=== PATIENT | male | born 1970 | race Two or more races ===

== ENCOUNTER 2022-12-27 09:39 | Inpatient (IN) | payer OTHER ==
[2022-12-27 10:20] VITALS: BMI 27.1
[2022-12-27] MEDS ORDERED: ONDANSETRON *ODT* 4 MG TABLET SL PRN (11:40)
[2022-12-27] MEDS ORDERED: POLYETHYLENE GLYCOL (HEALTHYLAX) 3350 17 GM PACKET PO PRN (11:40)
[2022-12-27] MEDS ORDERED: ACETAMINOPHEN 325 MG TABLET (FP) PO PRN (11:40)
[2022-12-27] MEDS ORDERED: BENZONATATE 200 MG CAPSULE PO PRN (11:40)
[2022-12-27] MEDS ORDERED: guaiFENesin 600 MG TABLET.ER (FP) PO PRN (11:40)
[2022-12-27] MEDS ORDERED: BENZOCAINE/MENTHOL (CHLORASEPTIC ) LOZENGE MM PRN (11:40)
[2022-12-27] MEDS ORDERED: MAGNESIUM HYDROX 2400MG/30ML ORAL SUSPENSION 30 ML CUP PO PRN (11:40)
[2022-12-27] MEDS ORDERED: NICOTINE POLACRILEX 2 MG GUM BUC PRN (11:40)
[2022-12-27] MEDS ORDERED: DICYCLOMINE HCL 10 MG CAPSULE PO PRN (11:40)
[2022-12-27] MEDS ORDERED: LOPERAMIDE HCL 2 MG CAPSULE PO PRN (11:40)
[2022-12-27] MEDS ORDERED: NALOXONE HCL (KLOXXADO) 8 MG SPRAY NS PRN (11:40)
[2022-12-27] MEDS ORDERED: IBUPROFEN 400 MG TABLET (FP) PO PRN (11:40)
[2022-12-27] MEDS ORDERED: P-EPHED 60MG/TRIPROLIDI 2.5MG TABLET PO PRN (11:40)
[2022-12-27] MEDS ORDERED: MAG HYDROX/AL HYDROX/SIMETH 30 ML UNIT-DOSE CUP PO PRN (11:40)
[2022-12-27] MEDS ORDERED: BISMUTH SUBSALICYLATE 262 MG/15 ML BTL PO PRN (11:40)
[2022-12-27] MEDS ORDERED: NALOXONE HCL 0.4 MG/ML VIAL IM PRN (11:40)
[2022-12-27] MEDS ORDERED: methaDONE HCL 10 MG TABLET (FOR DETOX USE ONLY) PO ONE (11:44)
[2022-12-27] MEDS ORDERED: cloNIDine HCL 0.1 MG TABLET PO PRN (11:44)
[2022-12-27] MEDS ORDERED: methaDONE HCL 10 MG TABLET (FOR DETOX USE ONLY) ONE (12:39)
[2022-12-27] MEDS: AMOXICILLIN 500 MG CAPSULE (FP) PO SCH ×2 (14:08→22:11)
[2022-12-27] MEDS: THIAMINE HCL 100 MG TABLET (FP) PO SCH (22:11)
[2022-12-27] MEDS: MELATONIN 5 MG TABLETS PO SCH (22:11)
[2022-12-28] MEDS: AMOXICILLIN 500 MG CAPSULE (FP) PO SCH ×3 (06:17→22:22)
[2022-12-28] MEDS: PRENATAL VITAMINS W/ FOLIC ACID TABLET (FP) PO SCH (10:07)
[2022-12-28] MEDS: METHOCARBAMOL 500 MG TABLET PO PRN ×2 (10:09→22:23)
[2022-12-28] MEDS: hydrOXYzine PAMOATE 25 MG CAPSULE (FP) PO PRN (22:23)
[2022-12-28] MEDS: THIAMINE HCL 100 MG TABLET (FP) PO SCH (22:23)
[2022-12-28] MEDS: MELATONIN 5 MG TABLETS PO SCH (22:23)
[2022-12-29] MEDS: AMOXICILLIN 500 MG CAPSULE (FP) PO SCH ×3 (06:00→22:11)
[2022-12-29] MEDS ORDERED: methaDONE HCL 10 MG TABLET (FOR DETOX USE ONLY) PO ONE (10:00)
[2022-12-29 10:11] LABS: POTASSIUM 4.3 mmol/L (3.5-5.1)
[2022-12-29] MEDS: PRENATAL VITAMINS W/ FOLIC ACID TABLET (FP) PO SCH (10:11)
[2022-12-29 10:18] LABS: HEMATOCRIT 45.8 % (35.4-49); HEMOGLOBIN 15.7 GM/dL (11.7-16.9); MCH 31.3 pg (25.7-33.7); MCHC 34.4 g/dl (32.0-35.9); MEAN PLT VOLUME 8.3 fl (7.5-11.1); PLATELET COUNT 271 10^3/uL (134-434); RBC 5.03 M/mm3 (4.00-5.60); RDW 13.4 % (11.9-15.9)
[2022-12-29 10:30] LABS: BLOOD UREA NITROGEN 24.4 mg/dL (7-18); CALCIUM 9.3 mg/dL (8.5-10.1)
[2022-12-29 10:31] LABS: ALBUMIN 3.7 g/dl (3.4-5.0)
[2022-12-29 10:35] LABS: BILIRUBIN,TOTAL 0.5 mg/dL (0.2-1)
[2022-12-29] MEDS: THIAMINE HCL 100 MG TABLET (FP) PO SCH (22:11)
[2022-12-29] MEDS: METHOCARBAMOL 500 MG TABLET PO PRN (22:11)
[2022-12-29] MEDS: MELATONIN 5 MG TABLETS PO SCH (22:11)
[2022-12-30] MEDS: AMOXICILLIN 500 MG CAPSULE (FP) PO SCH ×3 (06:12→22:11)
[2022-12-30] MEDS: hydrOXYzine PAMOATE 25 MG CAPSULE (FP) PO PRN (06:32)
[2022-12-30] MEDS: PRENATAL VITAMINS W/ FOLIC ACID TABLET (FP) PO SCH (10:20)
[2022-12-30] MEDS: METHOCARBAMOL 500 MG TABLET PO PRN ×2 (10:20→22:11)
[2022-12-30] MEDS: IBUPROFEN 600 MG TABLET (FP) PO PRN (11:26)
[2022-12-30] MEDS: MELATONIN 5 MG TABLETS PO SCH (22:11)
[2022-12-30] MEDS: cloNIDine HCL 0.1 MG TABLET PO PRN (22:11)
[2022-12-30] MEDS: THIAMINE HCL 100 MG TABLET (FP) PO SCH (22:11)
[2022-12-31] MEDS: AMOXICILLIN 500 MG CAPSULE (FP) PO SCH ×3 (05:09→22:01)
[2022-12-31] MEDS: hydrOXYzine PAMOATE 25 MG CAPSULE (FP) PO PRN ×2 (06:54→22:03)
[2022-12-31] MEDS: METHOCARBAMOL 500 MG TABLET PO PRN ×2 (06:54→22:01)
[2022-12-31] MEDS: cloNIDine HCL 0.1 MG TABLET PO PRN ×2 (09:44→22:02)
[2022-12-31] MEDS: PRENATAL VITAMINS W/ FOLIC ACID TABLET (FP) PO SCH (09:44)
[2022-12-31] MEDS ORDERED: methaDONE HCL 10 MG TABLET (FOR DETOX USE ONLY) PO ONE (10:00)
[2022-12-31] MEDS: MELATONIN 5 MG TABLETS PO SCH (22:02)
[2022-12-31] MEDS: THIAMINE HCL 100 MG TABLET (FP) PO SCH (22:02)
[2023-01-01] MEDS: AMOXICILLIN 500 MG CAPSULE (FP) PO SCH (05:23)
[2023-01-01] MEDS: cloNIDine HCL 0.1 MG TABLET PO PRN (07:35)
[2023-01-01] MEDS: IBUPROFEN 600 MG TABLET (FP) PO PRN (08:37)
[2023-01-01] MEDS: PRENATAL VITAMINS W/ FOLIC ACID TABLET (FP) PO SCH (10:20)
[2023-01-01 11:56] VITALS: BP 121/74; PULSE 72; RESP 17; TEMP 97.8
== END 2023-01-01 12:18 | disposition other institution (70) | DRG 773 ==
LOC: YASAS 09:39 → Y3N 12:19
PROVIDERS: ADMIT Allergy & Immunology; ATTEND Surgery
PROC: HZ2ZZZZ Detoxification Services for Substance Abuse Treatment (ICD-10-PCS; principal; 2022-12-27)
DX: F11.23 Opioid dependence with withdrawal (principal); F14.20 Cocaine dependence, uncomplicated; F17.210 Nicotine dependence, cigarettes, uncomplicated; I10 Essential (primary) hypertension
CPT/HCPCS: 36415; 80053; 85027; 86780; 87635; 87811; 93005; 93010

== ENCOUNTER 2023-01-01 11:46 | Inpatient (IN) | payer OTHER ==
[2023-01-01] MEDS ORDERED: IBUPROFEN 400 MG TABLET (FP) PO PRN (15:35)
[2023-01-01] MEDS ORDERED: NICOTINE 10 MG CARTRIDGE (INHALER) IH PRN (15:35)
[2023-01-01] MEDS ORDERED: NALOXONE HCL 0.4 MG/ML VIAL IVPUSH PRN (15:35)
[2023-01-01] MEDS ORDERED: COLLOIDAL OATMEAL 1 BAR EACH TP PRN (15:35)
[2023-01-01] MEDS ORDERED: BENZONATATE 200 MG CAPSULE PO PRN (15:35)
[2023-01-01] MEDS ORDERED: BENZOCAINE/MENTHOL (CHLORASEPTIC ) LOZENGE MM PRN (15:35)
[2023-01-01] MEDS ORDERED: LOPERAMIDE HCL 2 MG CAPSULE PO PRN (15:35)
[2023-01-01] MEDS ORDERED: ACETAMINOPHEN 325 MG TABLET (FP) PO PRN (15:35)
[2023-01-01] MEDS ORDERED: IBUPROFEN 600 MG TABLET (FP) PO PRN (15:35)
[2023-01-01] MEDS ORDERED: NICOTINE 14 MG/24 HOURS TOPICAL PATCH TD PRN (15:35)
[2023-01-01] MEDS ORDERED: guaiFENesin 600 MG TABLET.ER (FP) PO PRN (15:35)
[2023-01-01] MEDS ORDERED: METHOCARBAMOL 500 MG TABLET PO PRN (15:35)
[2023-01-01] MEDS ORDERED: NALOXONE HCL (KLOXXADO) 8 MG SPRAY NS PRN (15:35)
[2023-01-01] MEDS ORDERED: AMMONIUM LACTATE 12% LOTION 225 GM BOTTLE TP PRN (15:35)
[2023-01-01] MEDS ORDERED: MAG HYDROX/AL HYDROX/SIMETH 30 ML UNIT-DOSE CUP PO PRN (15:35)
[2023-01-01] MEDS ORDERED: POLYETHYLENE GLYCOL (HEALTHYLAX) 3350 17 GM PACKET PO PRN (15:35)
[2023-01-01] MEDS ORDERED: MAGNESIUM HYDROX 2400MG/30ML ORAL SUSPENSION 30 ML CUP PO PRN (15:35)
[2023-01-01] MEDS ORDERED: TUBERCULIN PPD 5 TU/0.1ML VIAL ID ONE ×2 (15:39→17:58)
[2023-01-01] MEDS: THIAMINE HCL 100 MG TABLET (FP) PO SCH (21:24)
[2023-01-01] MEDS: MELATONIN 5 MG TABLETS PO SCH (21:24)
[2023-01-01] MEDS: cloNIDine HCL 0.1 MG TABLET PO PRN (21:25)
[2023-01-02] MEDS ORDERED: NICOTINE 21 MG/24 HOURS TOPICAL PATCH TD PRN (08:16)
[2023-01-02] MEDS: PRENATAL VITAMINS W/ FOLIC ACID TABLET (FP) PO SCH (09:24)
[2023-01-02] MEDS: cloNIDine HCL 0.1 MG TABLET PO PRN ×2 (09:25→21:17)
[2023-01-02] MEDS: hydrOXYzine PAMOATE 25 MG CAPSULE (FP) PO PRN ×2 (09:26→21:18)
[2023-01-02] MEDS: THIAMINE HCL 100 MG TABLET (FP) PO SCH (21:17)
[2023-01-02] MEDS: MELATONIN 5 MG TABLETS PO SCH (21:18)
[2023-01-03] MEDS: PRENATAL VITAMINS W/ FOLIC ACID TABLET (FP) PO SCH (09:53)
[2023-01-03] MEDS: cloNIDine HCL 0.1 MG TABLET PO PRN (21:13)
[2023-01-03] MEDS: THIAMINE HCL 100 MG TABLET (FP) PO SCH (21:13)
[2023-01-03] MEDS: MELATONIN 5 MG TABLETS PO SCH (21:13)
[2023-01-03] MEDS: hydrOXYzine PAMOATE 25 MG CAPSULE (FP) PO PRN (21:14)
[2023-01-04] MEDS: PRENATAL VITAMINS W/ FOLIC ACID TABLET (FP) PO SCH (09:46)
[2023-01-04] MEDS: cloNIDine HCL 0.1 MG TABLET PO PRN ×2 (09:47→21:20)
[2023-01-04] MEDS: hydrOXYzine PAMOATE 25 MG CAPSULE (FP) PO PRN ×2 (09:47→17:36)
[2023-01-04] MEDS ORDERED: DOCUSATE SODIUM 100 MG CAPSULE (FP) PO PRN (15:51)
[2023-01-04] MEDS ORDERED: BUPRENORPHINE/NALOXONE 2 MG/0.5 MG FILM PACKET SL SCH (16:00)
[2023-01-04] MEDS: BUPRENORPHINE/NALOXONE 2 MG/0.5 MG FILM PACKET SL SCH (17:35)
[2023-01-04] MEDS: THIAMINE HCL 100 MG TABLET (FP) PO SCH (21:19)
[2023-01-04] MEDS: SUVOREXANT 10 MG TABLET PO PRN (21:20)
[2023-01-05] MEDS: hydrOXYzine PAMOATE 25 MG CAPSULE (FP) PO PRN ×2 (06:25→21:17)
[2023-01-05] MEDS: cloNIDine HCL 0.1 MG TABLET PO PRN ×2 (09:57→21:17)
[2023-01-05] MEDS: PRENATAL VITAMINS W/ FOLIC ACID TABLET (FP) PO SCH (09:57)
[2023-01-05] MEDS: BUPRENORPHINE/NALOXONE 2 MG/0.5 MG FILM PACKET SL SCH (09:57)
[2023-01-05] MEDS: SUVOREXANT 10 MG TABLET PO PRN (21:17)
[2023-01-05] MEDS: THIAMINE HCL 100 MG TABLET (FP) PO SCH (21:17)
[2023-01-06] MEDS: PRENATAL VITAMINS W/ FOLIC ACID TABLET (FP) PO SCH (09:32)
[2023-01-06] MEDS: BUPRENORPHINE/NALOXONE 2 MG/0.5 MG FILM PACKET SL SCH (09:34)
[2023-01-06] MEDS: hydrOXYzine PAMOATE 25 MG CAPSULE (FP) PO PRN ×2 (09:34→21:06)
[2023-01-06] MEDS: SUVOREXANT 10 MG TABLET PO PRN (21:05)
[2023-01-06] MEDS: cloNIDine HCL 0.1 MG TABLET PO PRN (21:06)
[2023-01-06] MEDS: THIAMINE HCL 100 MG TABLET (FP) PO SCH (21:06)
[2023-01-07] MEDS: cloNIDine HCL 0.1 MG TABLET PO PRN ×2 (07:33→21:05)
[2023-01-07] MEDS: PRENATAL VITAMINS W/ FOLIC ACID TABLET (FP) PO SCH (09:49)
[2023-01-07] MEDS: BUPRENORPHINE/NALOXONE 2 MG/0.5 MG FILM PACKET SL SCH (09:50)
[2023-01-07] MEDS: hydrOXYzine PAMOATE 25 MG CAPSULE (FP) PO PRN ×2 (09:50→21:06)
[2023-01-07] MEDS: THIAMINE HCL 100 MG TABLET (FP) PO SCH (21:05)
[2023-01-07] MEDS: SUVOREXANT 10 MG TABLET PO PRN (21:05)
[2023-01-08 06:32] VITALS: TEMP 98
[2023-01-08] MEDS: PRENATAL VITAMINS W/ FOLIC ACID TABLET (FP) PO SCH (09:44)
[2023-01-08] MEDS: hydrOXYzine PAMOATE 25 MG CAPSULE (FP) PO PRN (09:46)
[2023-01-08] MEDS: BUPRENORPHINE/NALOXONE 4 MG/1 MG FILM PACKET SL SCH (09:46)
[2023-01-08] MEDS: cloNIDine HCL 0.1 MG TABLET PO PRN ×2 (14:15→21:06)
[2023-01-08] MEDS: amLODIPine BESYLATE 2.5 MG TABLET (FP) PO SCH (15:51)
[2023-01-08] MEDS: SUVOREXANT 10 MG TABLET PO PRN (21:06)
[2023-01-08] MEDS: THIAMINE HCL 100 MG TABLET (FP) PO SCH (21:06)
[2023-01-09] MEDS: cloNIDine HCL 0.1 MG TABLET PO PRN ×2 (06:45→21:25)
[2023-01-09 08:54] VITALS: RESP 18
[2023-01-09] MEDS: PRENATAL VITAMINS W/ FOLIC ACID TABLET (FP) PO SCH (09:58)
[2023-01-09] MEDS: amLODIPine BESYLATE 2.5 MG TABLET (FP) PO SCH (09:58)
[2023-01-09] MEDS: BUPRENORPHINE/NALOXONE 4 MG/1 MG FILM PACKET SL SCH (09:59)
[2023-01-09] MEDS: hydrOXYzine PAMOATE 25 MG CAPSULE (FP) PO PRN ×2 (10:00→21:26)
[2023-01-09] MEDS: THIAMINE HCL 100 MG TABLET (FP) PO SCH (21:25)
[2023-01-09] MEDS: SUVOREXANT 10 MG TABLET PO PRN (21:26)
[2023-01-10 09:14] VITALS: BP 134/84; PULSE 73
[2023-01-10] MEDS: amLODIPine BESYLATE 2.5 MG TABLET (FP) PO SCH (09:22)
[2023-01-10] MEDS: PRENATAL VITAMINS W/ FOLIC ACID TABLET (FP) PO SCH (09:22)
[2023-01-10] MEDS: BUPRENORPHINE/NALOXONE 4 MG/1 MG FILM PACKET SL SCH (09:23)
== END 2023-01-10 09:30 | disposition home or self-care (01) | DRG 772 ==
LOC: YASAS 11:46 → Y3E 11:47
PROVIDERS: ADMIT Allergy & Immunology; ATTEND Psychiatry & Neurology Pain Medicine
PROC: HZ42ZZZ Group Counseling for Substance Abuse Treatment, Cognitive-Behavioral (ICD-10-PCS; principal; 2023-01-01)
DX: F11.20 Opioid dependence, uncomplicated (principal); F14.20 Cocaine dependence, uncomplicated; F17.210 Nicotine dependence, cigarettes, uncomplicated; F19.982 Other psychoactive substance use, unspecified with psychoactive substance-induced sleep disorder; F19.980 Other psychoactive substance use, unspecified with psychoactive substance-induced anxiety disorder; I10 Essential (primary) hypertension; K62.3 Rectal prolapse; Z56.0 Unemployment, unspecified; Z59.00 Homelessness unspecified
CPT/HCPCS: 36415; 82140; 86803

== ENCOUNTER 2024-03-28 08:28 | Inpatient (IN) | payer OTHER ==
[2024-03-28 10:08] VITALS: BMI 29.3
[2024-03-28] MEDS ORDERED: BENZONATATE 200 MG CAPSULE PO PRN (11:56)
[2024-03-28] MEDS ORDERED: BISMUTH SUBSALICYLATE 524 MG/30 ML PO PRN (11:56)
[2024-03-28] MEDS ORDERED: NALOXONE (NARCAN) HCL 4 MG/0.1 ML SPRAY NS PRN (11:56)
[2024-03-28] MEDS ORDERED: MAGNESIUM HYDROX 2400MG/30ML ORAL SUSPENSION 30 ML CUP PO PRN (11:56)
[2024-03-28] MEDS ORDERED: POLYETHYLENE GLYCOL (HEALTHYLAX) 3350 17 GM PACKET PO PRN (11:56)
[2024-03-28] MEDS ORDERED: guaiFENesin 600 MG TABLET.ER (FP) PO PRN (11:56)
[2024-03-28] MEDS ORDERED: ONDANSETRON *ODT* 4 MG TABLET SL PRN (11:56)
[2024-03-28] MEDS ORDERED: BENZOCAINE/MENTHOL (CHLORASEPTIC ) LOZENGE MM PRN (11:56)
[2024-03-28] MEDS ORDERED: DICYCLOMINE HCL 10 MG CAPSULE PO PRN (11:56)
[2024-03-28] MEDS ORDERED: ACETAMINOPHEN 325 MG TABLET (FP) PO PRN (11:56)
[2024-03-28] MEDS ORDERED: IBUPROFEN 400 MG TABLET (FP) PO PRN (11:56)
[2024-03-28] MEDS ORDERED: methaDONE HCL 10 MG TABLET (FOR DETOX USE ONLY) ONE (12:05)
[2024-03-28] MEDS: methaDONE HCL 10 MG TABLET (FOR DETOX USE ONLY) PO ONE (12:12)
[2024-03-28] MEDS: diazePAM 5 MG TABLET PO PRN (13:15)
[2024-03-28] MEDS: cloNIDine HCL 0.1 MG TABLET PO PRN (13:16)
[2024-03-28] MEDS: AMOX TR/POT CLAV 875MG/125MG TABLETS (FP) PO SCH (17:28)
[2024-03-28] MEDS: diazePAM 5 MG TABLET PO SCH (17:28)
[2024-03-28] MEDS: IBUPROFEN 600 MG TABLET (FP) PO PRN (17:31)
[2024-03-28] MEDS: MELATONIN 5 MG TABLETS PO SCH (22:48)
[2024-03-28] MEDS: THIAMINE 100 MG TABLET PO SCH (22:49)
[2024-03-29] MEDS: METHOCARBAMOL 500 MG TABLET PO PRN (09:44)
[2024-03-29] MEDS: PRENATAL VITAMINS W/ FOLIC ACID TABLET (FP) PO SCH (09:44)
[2024-03-29] MEDS: AZITHROMYCIN 250 MG TABLET PO SCH (09:46)
[2024-03-29] MEDS: NICOTINE 21 MG/24 HOURS TOPICAL PATCH TD SCH (09:46)
[2024-03-29] MEDS: cloNIDine HCL 0.1 MG TABLET PO PRN (10:38)
[2024-03-29] MEDS: hydrOXYzine PAMOATE 25 MG CAPSULE (FP) PO PRN (10:38)
[2024-03-29 11:11] LABS: HEMATOCRIT 40.8 % (35.4-49); HEMOGLOBIN 13.7 GM/dL (11.7-16.9); MCH 30.2 pg (25.7-33.7); MCHC 33.6 g/dl (32.0-35.9); MEAN CELL VOLUME 89.9 fl (80-96); MEAN PLT VOLUME 8.5 fl (7.5-11.1); PLATELET COUNT 363 10^3/uL (134-434); RBC 4.54 M/mm3 (4.00-5.60); RDW 13.8 % (11.9-15.9); WHITE BLOOD COUNT 5.7 K/mm3 (4.0-10.0)
[2024-03-29 11:16] LABS: CHLORIDE 110 mmol/L (98-107); SODIUM 142 mmol/L (136-145)
[2024-03-29 11:26] LABS: ANION GAP 5 mmol/L (4-13); BLOOD UREA NITROGEN 13.2 mg/dL (7-18); CALCIUM 8.9 mg/dL (8.5-10.1); CO2 26 mmol/L (21-32); GLUCOSE,RANDOM 157 mg/dL (74-106)
[2024-03-29 11:28] LABS: SGOT/AST 11 U/L (15-37); SGPT/ALT 26 U/L (13-61)
[2024-03-29 11:29] LABS: BILIRUBIN,TOTAL 0.3 mg/dL (0.2-1); TOT PROT 5.8 g/dl (6.4-8.2)
[2024-03-29 11:30] LABS: ALK PHOS 40 U/L (45-117)
[2024-03-29] MEDS: LOPERAMIDE HCL 2 MG CAPSULE PO PRN (12:30)
[2024-03-29] MEDS: QUEtiapine FUMARATE 50 MG TABLET PO PRN (22:22)
[2024-03-30] MEDS: diazePAM 5 MG TABLET PO SCH (05:51)
[2024-03-30] MEDS: methaDONE HCL 10 MG TABLET PO ONE ×2 (09:24→13:24)
[2024-03-30] MEDS: cloNIDine HCL 0.1 MG TABLET PO SCH (09:27)
[2024-03-30] MEDS ORDERED: methaDONE HCL 10 MG TABLET (FOR DETOX USE ONLY) PO ONE (10:00)
[2024-03-30] MEDS ORDERED: methaDONE HCL 10 MG TABLET PO PRN (10:52)
[2024-03-31] MEDS: diazePAM 5 MG TABLET PO SCH (06:06)
[2024-03-31] MEDS: methaDONE 40 MG, methaDONE 10 MG PO ONE (09:33)
[2024-03-31] MEDS: methaDONE HCL 10 MG TABLET PO PRN (13:14)
[2024-03-31] MEDS: NICOTINE POLACRILEX 2 MG GUM BUC PRN (19:09)
[2024-04-01] MEDS ORDERED: cloNIDine HCL 0.1 MG TABLET PO PRN
[2024-04-01] MEDS: diazePAM 5 MG TABLET PO ONE (05:56)
[2024-04-01] MEDS: cloNIDine HCL 0.1 MG TABLET PO PRN (09:20)
[2024-04-01] MEDS: methaDONE 40 MG, methaDONE 30 MG PO ONE (09:20)
[2024-04-01] MEDS ORDERED: methaDONE 40 MG, methaDONE 20 MG PO ONE (10:00)
[2024-04-01] MEDS ORDERED: methaDONE HCL 40 MG DISPERSABLE TABLET PO ONE (10:00)
[2024-04-01] MEDS ORDERED: methaDONE HCL 10 MG TABLET (FOR DETOX USE ONLY) PO ONE (10:00)
[2024-04-01] MEDS: amLODIPine BESYLATE 5 MG TABLET (FP) PO SCH (10:26)
[2024-04-01] MEDS: diazePAM 5 MG TABLET PO PRN (23:15)
[2024-04-02] MEDS ORDERED: methaDONE 40 MG, methaDONE 30 MG PO ONE (10:00)
[2024-04-02] MEDS: methaDONE HCL 40 MG DISPERSABLE TABLET PO ONE (10:32)
[2024-04-02] MEDS: diazePAM 5 MG TABLET PO PRN (13:16)
[2024-04-03] MEDS: methaDONE 80 MG, methaDONE 10 MG PO ONE (09:55)
[2024-04-03] MEDS ORDERED: methaDONE HCL 40 MG DISPERSABLE TABLET PO ONE ×2 (10:00)
[2024-04-03] MEDS: MAG HYDROX/AL HYDROX/SIMETH 30 ML UNIT-DOSE CUP PO PRN (12:24)
[2024-04-04 09:24] VITALS: BP 150/90; PULSE 74; RESP 16; TEMP 97.5
[2024-04-04] MEDS: methaDONE 80 MG, methaDONE 20 MG PO ONE (09:48)
[2024-04-04] MEDS ORDERED: methaDONE HCL 40 MG DISPERSABLE TABLET PO ONE (10:00)
[2024-04-04] MEDS ORDERED: methaDONE 80 MG, methaDONE 10 MG PO ONE (10:00)
[2024-04-04] MEDS: NALOXONE (NYS OPIOID OVERDOSE PROGRAM) 4 MG/0.1 ML SPRAY NS PRN (11:21)
== END 2024-04-04 11:35 | disposition home or self-care (01) | DRG 773 ==
LOC: YASAS 08:28 → Y6N 11:52
PROVIDERS: ADMIT Surgery; ATTEND Allergy & Immunology
PROC: HZ2ZZZZ Detoxification Services for Substance Abuse Treatment (ICD-10-PCS; principal; 2024-03-28)
DX: F11.23 Opioid dependence with withdrawal (principal); F10.230 Alcohol dependence with withdrawal, uncomplicated; F14.20 Cocaine dependence, uncomplicated; F17.210 Nicotine dependence, cigarettes, uncomplicated; F19.282 Other psychoactive substance dependence with psychoactive substance-induced sleep disorder; F19.24 Other psychoactive substance dependence with psychoactive substance-induced mood disorder; I10 Essential (primary) hypertension; J18.9 Pneumonia, unspecified organism; L03.113 Cellulitis of right upper limb; R73.9 Hyperglycemia, unspecified
CPT/HCPCS: 36415; 80053; 80305; 80307; 83036; 85027; 86780; 93005; 93010

== ENCOUNTER 2024-05-28 08:55 | Inpatient (IN) | payer OTHER ==
[2024-05-28 09:25] VITALS: BMI 24.3
[2024-05-28] MEDS ORDERED: MAGNESIUM HYDROX 2400MG/30ML ORAL SUSPENSION 30 ML CUP PO PRN (09:58)
[2024-05-28] MEDS ORDERED: DICYCLOMINE HCL 10 MG CAPSULE PO PRN (09:58)
[2024-05-28] MEDS ORDERED: BENZONATATE 200 MG CAPSULE PO PRN (09:58)
[2024-05-28] MEDS ORDERED: ACETAMINOPHEN 325 MG TABLET (FP) PO PRN (09:58)
[2024-05-28] MEDS ORDERED: BISMUTH SUBSALICYLATE 262 MG/15 ML BTL PO PRN (09:58)
[2024-05-28] MEDS ORDERED: MAG HYDROX/AL HYDROX/SIMETH 30 ML UNIT-DOSE CUP PO PRN (09:58)
[2024-05-28] MEDS ORDERED: NICOTINE POLACRILEX 4 MG GUM BUC PRN (09:58)
[2024-05-28] MEDS ORDERED: guaiFENesin 600 MG TABLET.ER (FP) PO PRN (09:58)
[2024-05-28] MEDS ORDERED: IBUPROFEN 400 MG TABLET (FP) PO PRN (09:58)
[2024-05-28] MEDS ORDERED: ONDANSETRON *ODT* 4 MG TABLET SL PRN (09:58)
[2024-05-28] MEDS ORDERED: POLYETHYLENE GLYCOL (HEALTHYLAX) 3350 17 GM PACKET PO PRN (09:58)
[2024-05-28] MEDS ORDERED: BENZOCAINE/MENTHOL (CHLORASEPTIC ) LOZENGE MM PRN (09:58)
[2024-05-28] MEDS ORDERED: LOPERAMIDE HCL 2 MG CAPSULE PO PRN (09:58)
[2024-05-28] MEDS ORDERED: NALOXONE (NARCAN) HCL 4 MG/0.1 ML SPRAY NS PRN (09:58)
[2024-05-28] MEDS ORDERED: methaDONE HCL 10 MG TABLET (FOR DETOX USE ONLY) ONE (10:42)
[2024-05-28] MEDS ORDERED: chlordiazePOXIDE HCL 25 MG CAPSULE ONE (10:42)
[2024-05-28] MEDS ORDERED: cloNIDine HCL 0.1 MG TABLET ONE (10:43)
[2024-05-28] MEDS ORDERED: NICOTINE 14 MG/24 HOURS TOPICAL PATCH TD ONE (10:43)
[2024-05-28] MEDS ORDERED: PRENATAL VITAMINS W/ FOLIC ACID TABLET (FP) PO ONE (10:43)
[2024-05-28] MEDS ORDERED: amLODIPine BESYLATE 5 MG TABLET (FP) ONE (10:43)
[2024-05-28] MEDS: NICOTINE 14 MG/24 HOURS TOPICAL PATCH TD SCH (10:44)
[2024-05-28] MEDS: methaDONE HCL 10 MG TABLET PO ONE (10:45)
[2024-05-28] MEDS: amLODIPine BESYLATE 5 MG TABLET (FP) PO SCH (10:45)
[2024-05-28] MEDS: cloNIDine HCL 0.1 MG TABLET PO SCH (10:46)
[2024-05-28] MEDS: PRENATAL VITAMINS W/ FOLIC ACID TABLET (FP) PO SCH (10:46)
[2024-05-28] MEDS: chlordiazePOXIDE HCL 25 MG CAPSULE PO SCH (10:47)
[2024-05-28] MEDS: chlordiazePOXIDE HCL 10 MG CAPSULE PO ONE (11:36)
[2024-05-28] MEDS ORDERED: methaDONE HCL 10 MG TABLET PO PRN (12:01)
[2024-05-28] MEDS: MELATONIN 5 MG TABLETS PO SCH (22:43)
[2024-05-28] MEDS: THIAMINE 100 MG TABLET PO SCH (22:44)
[2024-05-28] MEDS: MIRTAZAPINE 15 MG TABLET (FP) PO SCH (22:44)
[2024-05-29] MEDS: chlordiazePOXIDE HCL 25 MG CAPSULE PO SCH (05:47)
[2024-05-29] MEDS: methaDONE 40 MG, methaDONE 10 MG PO ONE (09:46)
[2024-05-29 12:47] LABS: HEMATOCRIT 40.6 % (35.4-49); HEMOGLOBIN 13.7 GM/dL (11.7-16.9); MCH 30.4 pg (25.7-33.7); MCHC 33.8 g/dl (32.0-35.9); MEAN CELL VOLUME 90.1 fl (80-96); MEAN PLT VOLUME 8.6 fl (7.5-11.1); PLATELET COUNT 274 10^3/uL (134-434); RBC 4.51 M/mm3 (4.00-5.60); RDW 14.3 % (11.9-15.9); WHITE BLOOD COUNT 7.3 K/mm3 (4.0-10.0)
[2024-05-29 12:48] LABS: POTASSIUM 3.8 mmol/L (3.5-5.1)
[2024-05-29 12:52] LABS: ALBUMIN 3.2 g/dl (3.4-5.0)
[2024-05-29 12:57] LABS: BILIRUBIN,TOTAL 0.5 mg/dL (0.2-1); CREATININE 0.6 mg/dL (0.55-1.3)
[2024-05-29 12:59] LABS: TOT PROT 5.8 g/dl (6.4-8.2)
[2024-05-29] MEDS: IBUPROFEN 600 MG TABLET (FP) PO PRN (13:37)
[2024-05-29] MEDS: chlordiazePOXIDE HCL 25 MG CAPSULE PO PRN (13:59)
[2024-05-29] MEDS: METHOCARBAMOL 500 MG TABLET PO PRN (16:39)
[2024-05-29] MEDS: hydrOXYzine PAMOATE 25 MG CAPSULE (FP) PO PRN (16:39)
[2024-05-30] MEDS: chlordiazePOXIDE HCL 10 MG CAPSULE PO SCH (05:42)
[2024-05-30] MEDS: methaDONE 40 MG, methaDONE 20 MG PO ONE (09:37)
[2024-05-30] MEDS: chlordiazePOXIDE HCL 10 MG CAPSULE PO PRN (12:24)
[2024-05-30] MEDS: hydrOXYzine PAMOATE 25 MG CAPSULE (FP) PO PRN (17:46)
[2024-05-30] MEDS: cloNIDine HCL 0.1 MG TABLET PO PRN (20:36)
[2024-05-30] MEDS: QUEtiapine FUMARATE 50 MG TABLET PO SCH (22:19)
[2024-05-31] MEDS: chlordiazePOXIDE HCL 10 MG CAPSULE PO SCH (05:51)
[2024-05-31] MEDS: methaDONE 40 MG, methaDONE 30 MG PO ONE (09:14)
[2024-05-31] MEDS: cloNIDine HCL 0.1 MG TABLET PO ONE (12:28)
[2024-05-31] MEDS: QUEtiapine FUMARATE 100 MG TABLET (FP) PO SCH (21:34)
[2024-05-31] MEDS: cloNIDine HCL 0.1 MG TABLET PO SCH (21:34)
[2024-06-01] MEDS ORDERED: chlordiazePOXIDE HCL 10 MG CAPSULE PO ONE (05:00)
[2024-06-01] MEDS: methaDONE HCL 40 MG DISPERSABLE TABLET PO ONE (09:41)
[2024-06-02 07:07] VITALS: RESP 17; TEMP 97.7
[2024-06-02 08:46] VITALS: BP 143/91; PULSE 77
[2024-06-02] MEDS: methaDONE 80 MG, methaDONE 10 MG PO ONE (09:22)
[2024-06-02] MEDS: NALOXONE (NYS OPIOID OVERDOSE PROGRAM) 4 MG/0.1 ML SPRAY NS SCH (09:45)
== END 2024-06-02 10:45 | disposition other institution (70) | DRG 773 ==
LOC: YASAS 08:55 → Y6N 11:54
PROVIDERS: ADMIT Allergy & Immunology; ATTEND Surgery
PROC: HZ2ZZZZ Detoxification Services for Substance Abuse Treatment (ICD-10-PCS; principal; 2024-05-28)
DX: F11.23 Opioid dependence with withdrawal (principal); F10.230 Alcohol dependence with withdrawal, uncomplicated; F14.20 Cocaine dependence, uncomplicated; F17.210 Nicotine dependence, cigarettes, uncomplicated; G47.00 Insomnia, unspecified; R03.0 Elevated blood-pressure reading, without diagnosis of hypertension
CPT/HCPCS: 36415; 80053; 80307; 85027; 86780; 93005; 93010